=== PATIENT | female | born 1935 | race African-American/Black ===

== ENCOUNTER 2017-12-23 10:47 | Emergency (ER) | payer MEDICARE, OTHER ==
[~2017-12-23] VITALS: Ht 162.6 cm; Wt 93.2 kg
[~2017-12-23 10:47] MED LIST: ALBU2.5V14 NEB; ALBU8.5H8 IH; ASPI-630 PO; CHOL10003 PO; CRESTOR5 MG PO; CYCL-331 PO; DIVA500T17 PO; DOXY100C2 PO; DULO30CA2 PO; FERR325T14 PO; GABA-585 PO; GABA-587 PO; HYDR-963 PO; HYDR25SU18 RC; LACTOBACILLUS ACIDOPHILUS PO; LOSA1TAB19 PO; NAPHAZOLINE OU; OMEP40CA5 PO; OXYC10TA45 PO; OXYM10TA PO; OXYM15TA PO; PHEN37.53 PO; RANI150T2 PO; SUCR1TAB PO; TRAZ-85 PO; WARF-31 PO; [UNRECOGNIZED DRUG - CODE] TP; imodium PO; lortab PO; losartan-hctz PO; miralax PO; multivitamin PO; mylanta PO; vitamin b-12 PO
[2017-12-23] MEDS ORDERED: ASPIRIN 81 MG TAB.CHEW PO ONE (11:15)
[2017-12-23] MEDS ORDERED: NITROGLYCERIN SUBLINGUAL 0.4 MG BOTTLE OF 25. SL PRN (11:15)
[2017-12-23 11:49] LABS: BASO % 1 % (0-3); EOS # 0.2 x10^3/uL (0.0-0.7); EOS % 4 % (0-3); HEMATOCRIT 36.1 % (36.0-47.0); HEMOGLOBIN 12.1 g/dL (12.0-15.5); LYMPH # 0.9 x10^3/uL (1.0-4.8); LYMPH % 20 % (24-48); MEAN CORPUSCULAR HEMOGLOBIN 32 pg (25-35); MEAN CORPUSCULAR HGB CONC 34 g/dL (31-37); MEAN CORPUSCULAR VOLUME 94 fL (79-100); MONO # 0.4 x10^3/uL (0.0-1.1); MONO % 8 % (0-9); NEUT % 68 % (31-73); PLATELET COUNT 227 x10^3/uL (140-400); RED BLOOD COUNT 3.83 x10^6/uL (3.50-5.40); RED CELL DISTRIBUTION WIDTH 15.1 % (11.5-14.5); WHITE BLOOD COUNT 4.5 x10^3/uL (4.0-11.0)
[2017-12-23 12:41] LABS: ALBUMIN 2.9 g/dL (3.4-5.0); ALBUMIN/GLOBULIN RATIO 0.6 (1.0-1.7); CALCIUM 9.4 mg/dL (8.5-10.1); CREATININE 1.1 mg/dL (0.6-1.0); GFR 57.8; MAGNESIUM 1.8 mg/dL (1.8-2.4); POTASSIUM 4.1 mmol/L (3.5-5.1); TOTAL BILIRUBIN 0.3 mg/dL (0.2-1.0); TOTAL PROTEIN 7.7 g/dL (6.4-8.2)
[2017-12-23] MEDS ORDERED: CYAN10005 PO (12:44)
[2017-12-23] MEDS ORDERED: LEVO50TA5 PO (12:44)
[2017-12-23] MEDS ORDERED: HYDR12.58 PO (12:44)
[2017-12-23] MEDS ORDERED: NORT25CA PO (12:44)
[2017-12-23] MEDS ORDERED: FURO40TA4 PO (12:44)
[2017-12-23] MEDS ORDERED: OXCA300T19 PO (12:44)
--- NOTE | 2017-12-23 12:45 | RAD ---
EXAM: CT Head without IV contrast CLINICAL HISTORY: headache/dizziness x 1 day, hx of high BP COMPARISON: None. TECHNIQUE: Routine CT of the head without contrast. Soft tissues and bone windows were reviewed. PQRS compliance statement - One or more of the following individualized dose reduction techniques were utilized for this study: 1. Automated exposure control 2. Adjustment of the mA and/or kV according to patient size 3. Use of iterative reconstruction technique FINDINGS: There is no evidence of hemorrhage, mass or extra-axial fluid collection. Leo-white differentiation is maintained with no evidence of edema. There are non-specific foci of hypodensity in the periventricular and subcortical white matter of the cerebral hemispheres. There is no mass effect or shift of the intracranial structures. The ventricles, basilar cisterns and cortical sulci are normal in size and configuration for the patients stated age. The cerebellum and brainstem are unremarkable. The calvarium demonstrates no evidence of fracture or focal lesion. There is normal aeration of the visualized paranasal sinuses and mastoid air cells. The visualized portions of the orbits are normal. Atherosclerotic calcifications of the intracranial internal carotid and vertebral arteries is seen. IMPRESSION: 1. No evidence of acute intracranial abnormality. Electronically signed by: Ilan Cook MD (12/23/2017 12:41 PM) [facility]
[2017-12-23 12:49] VITALS: BP 129/56
--- NOTE | 2017-12-23 12:49 | RAD ---
EXAM: CHEST AP ONLY DATE: 12/23/2017 11:58 AM INDICATION: chest pain x 1 day COMPARISON: No Prior FINDINGS/ IMPRESSION: Cardiac generator pack obscures a portion left chest with leads projecting over the right atrium and ventricle. The heart is not enlarged. Aorta is tortuous. Patchy opacities in left lung base likely atelectasis or consolidation. Small left pleural effusion. No pneumothorax. Electronically signed by: Ilan Cook MD (12/23/2017 12:46 PM) [facility]
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
--- NOTE | 2017-12-23 19:18 | EKG ---
[address] [address] Test Date: 2017-12-23 Test Time: 10:59:24 Pat Name: NAHOMY OBRIEN Department: Room: Gender: F General Doc: : 1935 Requested By: GEORGE ALBA Order Number: [id number] Reading MD: Vinod Terrazas Measurements Intervals [place] Rate: 77 P: 46 ME: 180 QRS: 13 QRSD: 96 T: 66 QT: 380 QTc: 432 Interpretive Statements SINUS RHYTHM ATRIAL PREMATURE COMPLEX(ES) Electronically Signed On 12-26-2017 10:54:46 CDT by Vinod Terrazas
== END 2017-12-23 13:20 | disposition home or self-care (01) ==
LOC: ER 10:47
DX: I10 Essential (primary) hypertension (principal); R42 Dizziness and giddiness; F43.9 Reaction to severe stress, unspecified; R07.89 Other chest pain; J44.9 Chronic obstructive pulmonary disease, unspecified; K21.9 Gastro-esophageal reflux disease without esophagitis; F32.9 Major depressive disorder, single episode, unspecified; E78.00 Pure hypercholesterolemia, unspecified; Z95.0 Presence of cardiac pacemaker; Z88.8 Allergy status to other drugs, medicaments and biological substances; Z88.0 Allergy status to penicillin; Z91.040 Latex allergy status
CPT/HCPCS: 36415; 70450; 71045; 80053; 82550; 83690; 83735; 83880; 84484; 85025; 85610; 93005; 99285-25

== ENCOUNTER 2018-01-07 15:34 | Emergency (ER) | payer MEDICARE, OTHER ==
[~2018-01-07] VITALS: Ht 162.6 cm; Wt 77.1 kg
[2018-01-07 15:34] VITALS: BP 121/81
[~2018-01-07 15:34] MED LIST changes: +CYAN10005 PO; +FURO40TA4 PO; +HYDR12.58 PO; +LEVO50TA5 PO; +NORT25CA PO; +OXCA300T19 PO
--- NOTE | 2018-01-07 16:50 | RAD ---
CT HEAD AND CERVICAL SPINE WO dated 01/07/2018 4:23 PM Indication: Pain head and neck painFell 4 days ago, hit frontal headache/dizziness with neck pain, recent injury Comparison: 12/23/2017 Technique: Contiguous axial imaging the head was performed from skull base to vertex. In addition, axial imaging of the cervical spine acquired with thin cut coronal and sagittal reconstruction. One or more of the following individualized dose reduction techniques were utilized for this examination: 1. Automated exposure control 2. Adjustment of the mA and/or kV according to patient size 3. Use of iterative reconstruction technique Findings: Ventricles and sulci are within normal limits for age. No midline shift or mass effect. Cavum septum pellucidum anomaly, unchanged. Minimal patchy low density in the deep/subcortical periventricular white matter. No hemorrhage or extra axial collection. Posterior fossa and brainstem unremarkable. Visualized paranasal sinuses and mastoid air cells are clear. No apparent calvarial abnormality. Images of the cervical spine were acquired skull base to T3. There is slight anterolisthesis of C4 on C5 with mild retrolisthesis of C5 on C6 and C6 on C7. Vertebral body heights are maintained. Posterior elements are intact. No prevertebral soft tissue swelling. No evidence of fracture. Moderate endplate hypertrophic changes throughout with moderate to severe disc space narrowing at C4-C5, C5-C6 and C6-C7. Multilevel uncovertebral spurring and facet arthropathy. There is mild central stenosis at C4-C5 and C5-C6 with varying degrees of mild to moderate foraminal narrowing throughout. Visualized soft tissue structures unremarkable. The thyroid gland appears somewhat enlarged. Patchy groundglass opacity at the bilateral lung apices, nonspecific. IMPRESSION HEAD: 1. No evidence of acute intracranial hemorrhage or mass. 2. Mild chronic small vessel ischemic changes and atrophy. Impression cervical spine: 1. No evidence of fracture or malalignment. 2. Moderate multilevel spondylosis. Electronically signed by: Aries Rucker MD (01/07/2018 4:47 PM) [facility]
--- NOTE | 2018-01-07 17:11 | PHYS DOC ---
Past History Past Medical History: Asthma, COPD, Depression, GERD, High Cholesterol, Hypertension, Other Past Surgical History: Appendectomy, Cholecystectomy, Knee Replacement, Pacemaker Smoking: Non-smoker Alcohol Use: Rarely Drug Use: None Adult General Chief Complaint Chief Complaint: MECHANICAL FALL HPI HPI Patient is a 83 year old female who presents with complaining of a fall 5 days ago patient states while she was at the dentist office she tripped and fell on her forehead without loss of consciousness. Patient complaining of forehead headache as a sharp pain and rated her pain 6/10 and states she took hydrocodone. Patient denies fever and chills, focal neuro deficit, other injuries. Review of Systems Review of Systems Constitutional: Denies fever or chills [] Eyes: Denies change in visual acuity, redness, or eye pain [] HENT: Denies nasal congestion or sore throat [] Respiratory: Denies cough or shortness of breath [] Cardiovascular: No additional information not addressed in HPI [] GI: Denies abdominal pain, nausea, vomiting, bloody stools or diarrhea [] : Denies dysuria or hematuria [] Musculoskeletal: Denies back pain or joint pain [] Integument: Denies rash or skin lesions [] Neurologic: Reports headache, denies focal weakness or sensory changes [] Endocrine: Denies polyuria or polydipsia [] All other systems were reviewed and found to be within normal limits, except as documented in this note. Allergies Allergies Allergies Coded Allergies Type Severity Reaction Last Updated Verified lisinopril Allergy Severe Anaphylaxis 09/19/14 Yes Latex, Natural Rubber Allergy Intermediate 11/19/13 Yes Penicillins Allergy Intermediate 06/09/14 Yes adhesive Allergy Intermediate 09/19/14 Yes pravastatin Allergy Mild Swelling 09/19/14 Yes simvastatin Allergy Mild Rash 09/19/14 Yes Physical Exam Physical Exam Constitutional: Well developed, well nourished, no acute distress, non-toxic appearance. [] HENT: Normocephalic, atraumatic, bilateral external ears normal, oropharynx moist, no oral exudates, nose normal. [] Eyes: PERRLA, EOMI, conjunctiva normal, no discharge. [] Neck: Normal range of motion, no tenderness, supple, no stridor. [] Cardiovascular:Heart rate regular rhythm, no murmur [] Lungs & Thorax: Bilateral breath sounds clear to auscultation [] Abdomen: Bowel sounds normal, soft, no tenderness, no masses, no pulsatile masses. [] Skin: Warm, dry, no erythema, no rash. [] Back: No tenderness, no CVA tenderness. [] Extremities: No tenderness, no cyanosis, no clubbing, ROM intact, no edema. [] Neurologic: Alert and oriented X 3, normal motor function, normal sensory function, no focal deficits noted. [] Psychologic: Affect normal, judgement normal, mood normal. [] Current Patient Data Vital Signs Vital Signs Date Time Temp Pulse Resp B/P (MAP) Pulse Ox O2 Delivery O2 Flow Rate FiO2 01/07/18 15:34 Room Air 01/07/18 15:34 98.4 89 20 96 EKG EKG [] Radiology/Procedures Radiology/Procedures [address] [address] IMAGING REPORT Signed PATIENT: NAHOMY OBRIEN ACCOUNT: [id number] : 1935 LOCATION: ER AGE: 83 SEX: F EXAM STATUS: REG ER ORD. PHYSICIAN: GEORGE ALBA MD REASON: fall PROCEDURE: CT HEAD AND CERVICAL SPINE WO CT HEAD AND CERVICAL SPINE WO dated 01/07/2018 4:23 PM Indication: Pain head and neck painFell 4 days ago, hit frontal headache/dizziness with neck pain, recent injury Comparison: 12/23/2017 Technique: Contiguous axial imaging the head was performed from skull base to vertex. In addition, axial imaging of the cervical spine acquired with thin cut coronal and sagittal reconstruction. One or more of the following individualized dose reduction techniques were utilized for this examination: 1. Automated exposure control 2. Adjustment of the mA and/or kV according to patient size 3. Use of iterative reconstruction technique Findings: Ventricles and sulci are within normal limits for age. No midline shift or mass effect. Cavum septum pellucidum anomaly, unchanged. Minimal patchy low density in the deep/subcortical periventricular white matter. No hemorrhage or extra axial collection. Posterior fossa and brainstem unremarkable. Visualized paranasal sinuses and mastoid air cells are clear. No apparent calvarial abnormality. Images of the cervical spine were acquired skull base to T3. There is slight anterolisthesis of C4 on C5 with mild retrolisthesis of C5 on C6 and C6 on C7. Vertebral body heights are maintained. Posterior elements are intact. No prevertebral soft tissue swelling. No evidence of fracture. Moderate endplate hypertrophic changes throughout with moderate to severe disc space narrowing at C4-C5, C5-C6 and C6-C7. Multilevel uncovertebral spurring and facet arthropathy. There is mild central stenosis at C4-C5 and C5-C6 with varying degrees of mild to moderate foraminal narrowing throughout. Visualized soft tissue structures unremarkable. The thyroid gland appears somewhat enlarged. Patchy groundglass opacity at the bilateral lung apices, nonspecific. IMPRESSION HEAD: 1. No evidence of acute intracranial hemorrhage or mass. 2. Mild chronic small vessel ischemic changes and atrophy. Impression cervical spine: 1. No evidence of fracture or malalignment. 2. Moderate multilevel spondylosis. Electronically signed by: Aries Rucker MD (01/07/2018 4:47 PM) [facility] DICTATED AND SIGNED BY: ARIES RUCKER MD DATE: 01/07/18 164 CC: NILESH BARRY MD; GEORGE ALBA MD ~ Course & Med Decision Making Course & Med Decision Making Pertinent Imaging studies reviewed. (See chart for details) Evaluation of patient in ER showed 83-year-old female patient with a fall 5 days ago and complaining of headache. Patient had unremarkable physical exam and CT head and neck. Dragon Disclaimer Dragon Disclaimer This electronic medical record was generated, in whole or in part, using a voice recognition dictation system. Departure Departure: Impression: Primary Impression: Head injury Additional Impression: Headache Disposition: 01 HOME, SELF-CARE (at 1710) Condition: STABLE Referrals: NILESH BARRY MD (PCP) Patient Instructions: Fall Prevention and Home Safety, Head Injury, Adult Additional Instructions: Continue home pain medication Follow-up with your primary care physician in 3-5 days Return to ER if not getting better Problem Qualifiers GOERGE ALBA MD Jan 07, 2018 17:11
== END 2018-01-07 17:34 | disposition home or self-care (01) ==
LOC: ER 15:34
DX: S09.90XA Unspecified injury of head, initial encounter (principal); M47.9 Spondylosis, unspecified; I67.82 Cerebral ischemia; G31.9 Degenerative disease of nervous system, unspecified; J44.9 Chronic obstructive pulmonary disease, unspecified; K21.9 Gastro-esophageal reflux disease without esophagitis; E78.00 Pure hypercholesterolemia, unspecified; I10 Essential (primary) hypertension; Z95.0 Presence of cardiac pacemaker; Z88.8 Allergy status to other drugs, medicaments and biological substances; Z91.040 Latex allergy status; Z88.0 Allergy status to penicillin; W01.0XXA Fall on same level from slipping, tripping and stumbling without subsequent striking against object, initial encounter; Y93.89 Activity, other specified; Y92.531 Health care provider office as the place of occurrence of the external cause; Y99.8 Other external cause status
CPT/HCPCS: 70450; 72125; 99284-25

== ENCOUNTER → 2019-11-11 | Outpatient (CLI) | payer MEDICARE, OTHER ==
[~2019-11-11] MED LIST changes: +ALBU2.5V8 IH; -ALBU8.5H8 IH; +CYAN-25 PO; -CYAN10005 PO; +HYDR-3136 PO; -HYDR-963 PO; +OMEP40CA45 PO; -OMEP40CA5 PO; -OXYC10TA45 PO; +OXYC10TA46 PO; +TRAZ-120 PO; -TRAZ-85 PO
--- NOTE | 2019-11-11 16:08 | RAD ---
EXAM: 3 views left knee DATE: 11/11/2019 12:00 AM INDICATION: Reason: KNEE PAIN / Spl. Instructions: / History: COMPARISON: No Prior FINDINGS: No evidence of acute fracture or dislocation. Mild medial compartment joint space narrowing with small medial compartment osteophytes. Small left knee joint effusion. Medial compartment vacuum phenomenon is incidentally seen. IMPRESSION: No evidence of acute fracture or dislocation. Left knee joint osteoarthritis. Electronically signed by: Ilan Cook MD (11/11/2019 4:05 PM) [facility]
== END | disposition home or self-care (01) ==
LOC: DXRAD 13:54
PROVIDERS: ATTEND Physician Assistant
DX: M17.12 Unilateral primary osteoarthritis, left knee (principal); M25.762 Osteophyte, left knee; M25.462 Effusion, left knee
CPT/HCPCS: 73562

== ENCOUNTER → 2020-05-13 | Outpatient (CLI) | payer MEDICARE, OTHER ==
--- NOTE | 2020-05-14 12:22 | RAD ---
DATE: 05/13/2020 12:02 PM EXAM: DIGITAL SCREEN BILAT W/CAD HISTORY: Screening COMPARISON: 02/05/2019 Bilateral full field craniocaudal and mediolateral oblique images were obtained using digital technique. This study was interpreted with the benefit of Computerized Aided Detection (CAD). FINDINGS: Breast Density: SCATTERED The breast parenchyma shows scattered fibroglandular densities. Breast parenchyma level B Left chest pacemaker is partially imaged. No suspicious masses, microcalcifications or architectural distortion is present to suggest malignancy in either breast. The visualized axillae are unremarkable. IMPRESSION: No mammographic evidence of malignancy. BI-RADS CATEGORY: 1 NEGATIVE RECOMMENDED FOLLOW-UP: 12M 12 MONTH FOLLOW-UP Annual screening mammography is recommended, unless clinically indicated sooner based on symptoms or change in physical exam. PQRS compliance statement: Patient information was entered into a reminder system with a target due date for the next mammogram. Mammography is a sensitive method for finding small breast cancers, but it does not detect them all and is not a substitute for careful clinical examination. A negative mammogram does not negate a clinically suspicious finding and should not result in delay in biopsying a clinically suspicious abnormality. "Our facility is accredited by the [employer] Mammography Program."
== END ==
LOC: MAMMO 11:32
PROVIDERS: ATTEND Family Medicine
DX: Z12.31 Encounter for screening mammogram for malignant neoplasm of breast (principal)
CPT/HCPCS: 77067

== ENCOUNTER → 2020-10-23 | Outpatient (CLI) | payer MEDICARE, OTHER ==
[~2020-10-23] MED LIST changes: -OMEP40CA45 PO; +OMEP40CA7 PO
--- NOTE | 2020-10-25 09:21 | RAD ---
CT scan of the cervical spine without contrast 10/23/2020 Clinical history: Neck pain. Technique: Unenhanced, contiguous, 0.625 mm axial sections were obtained through the cervical spine. 2 mm reconstructed axial and 2 mm coronal and sagittal reconstructed images were obtained. One or more of the following individualized dose reduction techniques were utilized for this study: 1. Automated exposure control. 2. Adjustment of the mA and/or kV according to patient size. 3. Use of iterative reconstruction technique. Findings: Sagittal and coronal reconstructed images demonstrate minimal lateral curvature of the cerv ical spine, convex to the right. There is straightening of the normal cervical lordosis. Degenerative changes consisting of varying degrees of disc space narrowing, vertebral endplate sclerosis and mild to moderate anterior and posterior vertebral body osteophyte formation are seen involving the mid an d lower cervical disc spaces. Atherosclerotic calcifications is seen in the region of the carotid bif urcations. No fracture or subluxation of the cervical vertebrae is seen. On the axial images throughout the cervical spine cervical disc spaces, degenerative changes are seen consisting of mild to moderate generalized disc bulges and degenerative changes involving the uncove rtebral and facet joints. These findings result in mild central spinal canal stenosis with mild to mo derate bilateral neural foraminal stenosis at C4-5, mild to moderate central spinal canal stenosis an d mild to moderate bilateral neural foraminal stenosis at C5-6 and mild central spinal canal stenosis with mild right greater than left neural foraminal stenosis at C6-7. IMPRESSION: Degenerative changes are seen involving the cervical spine as discussed above. These find ings result in mild central spinal canal stenosis with mild to moderate bilateral neural foraminal st enosis at C4-5, mild to moderate central spinal canal stenosis with mild to moderate bilateral neural foraminal stenosis at C5-6 and mild central spinal canal stenosis with mild right greater than left neural foraminal stenosis at C6-7. No acute osseous abnormality is seen. Electronically signed by: Magdi Kowalski MD (10/25/2020 9:19 AM) [id number]
--- NOTE | 2020-10-25 09:48 | RAD ---
CT scan of the lumbar spine without contrast 10/23/2020 CLINICAL HISTORY: Low back pain which radiates down the right leg. TECHNIQUE: Unenhanced, contiguous, 0.625 mm axial sections were obtained through the lumbar spine. 3 mm reconstructed sagittal, axial and coronal images were obtained. One or more of the following individualized dose reduction techniques were utilized for this study: 1. Automated exposure control. 2. Adjustment of the mA and/or kV according to patient size. 3. Use of iterative reconstruction technique. FINDINGS: Sagittal and coronal reconstructed images demonstrate minimal S-shaped curvature of the tho racolumbar spine. Mild anterolisthesis of L4 in relation to L5 is seen. The patient is post laminecto my at L4-5 and post posterolateral fusion using pedicle screws, stabilizing rods and bone graft mater ial at L3-4 and L4-5. Degenerative changes consisting of vacuum disc phenomenon, vertebral endplate s clerosis and mild to moderate anterior vertebral body osteophyte formation are seen involving the T10 -11 and T11-12 discs. Degenerative changes consisting of disc space narrowing, vertebral endplate scl erosis and minimal to mild anterior and posterior vertebral body osteophyte formation is seen at L4-5 . Atherosclerotic calcification of the abdominal aorta and its branches is noted. No fracture or subluxation of the lumbar vertebrae is seen. At the T10-11 disc space there is a mild to moderate generalized disc bulge. This is eccentric to the right. Degenerative changes are seen involving the facet joints bilaterally. There is mild ligamentu m flavum hypertrophy bilaterally. These findings when combined result in mild central spinal canal st enosis. Mild to moderate bilateral neural foraminal stenosis is seen. At the T11-12 disc space there is a moderate generalized disc bulge. Degenerative changes are seen in volving the facet joints bilaterally. There is moderate ligamentum flavum hypertrophy bilaterally. Th chaya findings when combined result in moderate to severe central spinal canal stenosis. Moderate to se nino bilateral neural foraminal stenosis is seen. At the T12-L1 and L1-2 disc spaces there are mild generalized disc bulges. Degenerative changes are s een involving the facet joints bilaterally. These findings do not result in significant central spina l canal or neural foraminal stenosis. At the L2-3 disc space there is a mild to moderate generalized disc bulge. Degenerative changes are s een involving the facet joints bilaterally. Moderate to severe ligamentum flavum hypertrophy is seen bilaterally. These findings when combined result in moderate to severe central spinal canal stenosis. No neural foraminal stenosis is seen. At the L3-4 level degenerative changes are seen involving the facet joints bilaterally. These finding s do not result in significant central spinal canal or neural foraminal stenosis. At the L4-5 level degenerative changes are seen involving the facet joints bilaterally. No significan t central spinal canal or neural foraminal stenosis is seen. At the L5-S1 disc space there is a mild generalized disc bulge. Degenerative changes are seen involvi ng the facet joints bilaterally. These findings do not result in significant central spinal canal or neural foraminal stenosis. IMPRESSION: 1. Post laminectomy at L4-5. Post posterolateral fusion at L3-4 and L4-5. 2. The changes of degenerative disc disease are seen involving the lower thoracic and throughout the lumbar spine resulting in multilevel central spinal canal and neural foraminal stenosis of varying se verity as discussed above. Electronically signed by: Magdi Kowalski MD (10/25/2020 9:45 AM) [id number]
== END ==
LOC: CT 13:55
PROVIDERS: ATTEND Family Medicine
DX: M47.812 Spondylosis without myelopathy or radiculopathy, cervical region (principal); M50.90 Cervical disc disorder, unspecified, unspecified cervical region; M48.02 Spinal stenosis, cervical region; M54.41 Lumbago with sciatica, right side
CPT/HCPCS: 72125; 72131

== ENCOUNTER 2020-11-30 17:06 | Emergency (ER) | payer MEDICARE, OTHER ==
[~2020-11-30] VITALS: Ht 315 cm; Wt 93.2 kg
[~2020-11-30 17:06] MED LIST changes: -DOXY100C2 PO; +DOXY100C3 PO
--- NOTE | 2020-11-30 17:54 | PHYS DOC ---
Past History Past Medical History: Asthma, COPD, Depression, GERD, High Cholesterol, Hypertension, Other Past Surgical History: Appendectomy, Cholecystectomy, Knee Replacement, Pacemaker Smoking: Non-smoker Alcohol Use: Rarely Drug Use: None General Adult EDM: Chief Complaint: Neck Pain HPI: HPI: " pain clinic sent me over to get a CT of my neck.... "". Said maybe had a neck fracture. Patient is a 85 year old female who presents with above hx and complaints of neck pain. Patient has been following at [facility] for chronic low back pain. Patient did have x-rays completed there and she was called at home and told to go to ER to get a CT of neck for possible neck fracture. Patient denies any recent trauma. Patient denies any recent travel. No specific ill contacts. No history of fever or chills. Patient does have some chronic neck stiffness but denies any acute exacerbation of pain. Pt Follows with Dr. Barry. Review of Systems: Review of Systems: Constitutional: Denies fever or chills Eyes: Denies change in visual acuity HENT: Denies nasal congestion or sore throat. Complains of neck pain Respiratory: Denies cough or shortness of breath Cardiovascular: Denies chest pain or edema GI: Denies abdominal pain, nausea, vomiting, bloody stools or diarrhea : Denies dysuria Musculoskeletal: Complains of chronic low back pain Integument: Denies rash Neurologic: Denies headache, focal weakness or sensory changes Endocrine: Denies polyuria or polydipsia Lymphatic: Denies swollen glands Psychiatric: Denies depression or anxiety Family History: Family History: Noncontributory to presentation Current Medications: Current Meds: See nursing for home meds Allergies: Allergies: Allergies Coded Allergies Type Severity Reaction Last Updated Verified lisinopril Allergy Severe Anaphylaxis 09/19/14 Yes Latex, Natural Rubber Allergy Intermediate 11/19/13 Yes Penicillins Allergy Intermediate 06/09/14 Yes adhesive Allergy Intermediate 09/19/14 Yes pravastatin Allergy Mild Swelling 09/19/14 Yes simvastatin Allergy Mild Rash 09/19/14 Yes Physical Exam: PE: Constitutional: Moderate acute distress, non-toxic appearance. [] HENT: Normocephalic, atraumatic, bilateral external ears normal, oropharynx moist, no oral exudates, nose normal. [] Eyes: PERRLA, EOMI, conjunctiva normal, no discharge. [] Neck: Decreased range of motion, some upper neck muscle tenderness, supple, no stridor. [] Cardiovascular:Heart rate regular rhythm, no murmur [] Lungs & Thorax: Bilateral breath sounds equal apex on auscultation [] Abdomen: Bowel sounds normal, soft, no tenderness, no masses, no pulsatile masses. Obese Skin: Warm, dry, no erythema, no rash. [] Back: No tenderness, no CVA tenderness. Recent injection sites back. Pain primary lumbar sacral area. Extremities: No tenderness, no cyanosis, no clubbing, ROM intact, no edema. [] Neurologic: Alert and oriented X 3, normal motor function, normal sensory function, no focal deficits noted. [] DTRs +2 patella and brachial. Psychologic: Affect anxious, judgement normal, mood normal. [] Current Patient Data: Vital Signs: Vital Signs Date Time Temp Pulse Resp B/P (MAP) Pulse Ox O2 Delivery O2 Flow Rate FiO2 11/30/20 17:41 97.2 87 12 164/84 98 Room Air EKG: EKG: [] Radiology/Procedures: Radiology/Procedures: [][address] [address] IMAGING REPORT Signed PATIENT: NAHOMY OBRIEN ACCOUNT: [id number] : 1935 LOCATION: ER AGE: 85 SEX: F EXAM STATUS: REG ER ORD. PHYSICIAN: JOE KHANNA MD REASON: XR showed possible FX @ pain clinic today, neck pain PROCEDURE: CT CERVICAL SPINE WO CONTRAST Exam: CT cervical spine without contrast INDICATION: X-ray showed possible fracture pain clinic today TECHNIQUE: Sequential axial images through the cervical spine obtained without IV contrast. Sagittal and coronal reformatted images were reconstructed from the axial data and reviewed. Exposure: One or more of the following in the visualized dose reduction techniques were utilized for this examination: 1. Automated exposure control 2. Adjustment of the MA and/or KV according to patient size 3. Use of iterative of reconstructive technique Comparisons: 10/23/2020 FINDINGS: Visualized intracranial structures are unremarkable. Vertebral body heights are well-maintained. Straightening of cervical spine which may positional. Grade 1 anterolisthesis of C3 on C4. Grade 1 retrolisthesis of C5 on C6. Cervical spine is not identified. Multilevel spondylotic change in cervical spine with degenerative disc disease greatest at C4-C5, C5-C6 and C6-C7. Mild bilateral facet arthropathy is also noted in cervical spine. Visualized paraspinal soft tissues are unremarkable. IMPRESSION: Negative CT C-spine for acute traumatic injury. 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 Electronically signed by: Patrice Young MD (11/30/2020 6:30 PM) [facility] DICTATED AND SIGNED BY: PATRICE YOUNG MD DATE: 11/30/201826 CC: NILESH BARRY MD; JOE KHANNA MD ~MTH0 0 Heart Score: C/O Chest Pain: N/A Risk Factors: Risk Factors: DM, Current or recent (<one month) smoker, HTN, HLP, family history of CAD, obesity. Risk Scores: Score 0 - 3: 2.5% MACE over next 6 weeks - Discharge Home Score 4 - 6: 20.3% MACE over next 6 weeks - Admit for Clinical Observation Score 7 - 10: 72.7% MACE over next 6 weeks - Early Invasive Strategies Course & Med Decision Making: Course & Med Decision Making Pertinent Labs and Imaging studies reviewed. (See chart for details) Patient keep follow-up pain center. Patient keep follow-up with primary care. Patient return if any concerns. No acute findings acute fracture neck on CT. Does have degenerative changes. Findings discussed with patient. He will follow with pain center as well as primary. Patient return if any concerns. Impression: 1. Chronic low back pain-degenerative joint changes 2. Cervical pain-degenerative joint changes [] Dragon Disclaimer: Dragalice Disclaimer: This electronic medical record was generated, in whole or in part, using a voice recognition dictation system. Departure Departure: Referrals: NILESH BARRY MD (PCP) Richard Disclaimer This chart was dictated in whole or in part using Voice Recognition software in a busy, high-work load, and often noisy Emergency Department environment. It may contain unintended and wholly unrecognized errors or omissions. JOE KHANNA MD Nov 30, 2020 17:54
--- NOTE | 2020-11-30 18:32 | RAD ---
Exam: CT cervical spine without contrast INDICATION: X-ray showed possible fracture pain clinic today TECHNIQUE: Sequential axial images through the cervical spine obtained without IV contrast. Sagittal and coronal reformatted images were reconstructed from the axial data and reviewed. Exposure: One or more of the following in the visualized dose reduction techniques were utilized for this examination: 1. Automated exposure control 2. Adjustment of the MA and/or KV according to patient size 3. Use of iterative of reconstructive technique Comparisons: 10/23/2020 FINDINGS: Visualized intracranial structures are unremarkable. Vertebral body heights are well-maintained. Straightening of cervical spine which may positional. Gra de 1 anterolisthesis of C3 on C4. Grade 1 retrolisthesis of C5 on C6. Cervical spine is not identified. Multilevel spondylotic change in cervical spine with degenerative disc disease greatest at C4-C5, C5- C6 and C6-C7. Mild bilateral facet arthropathy is also noted in cervical spine. Visualized paraspinal soft tissues are unremarkable. IMPRESSION: Negative CT C-spine for acute traumatic injury. Multilevel spondylotic change in cervical spine not s ignificant changed from prior exam. Electronically signed by: Patrice Lau MD (11/30/2020 6:30 PM) TRISTAN
[2020-11-30 20:11] VITALS: BP 148/92
== END 2020-11-30 20:13 | disposition home or self-care (01) ==
LOC: ER 17:10
DX: M50.30 Other cervical disc degeneration, unspecified cervical region (principal); M51.36 Other intervertebral disc degeneration, lumbar region; G89.29 Other chronic pain; J44.9 Chronic obstructive pulmonary disease, unspecified; K21.9 Gastro-esophageal reflux disease without esophagitis; E78.00 Pure hypercholesterolemia, unspecified; I10 Essential (primary) hypertension; Z90.89 Acquired absence of other organs; Z90.49 Acquired absence of other specified parts of digestive tract; Z95.0 Presence of cardiac pacemaker; Z88.0 Allergy status to penicillin; Z91.040 Latex allergy status; Z88.8 Allergy status to other drugs, medicaments and biological substances
CPT/HCPCS: 72125; 99284